=== PATIENT | male | born 1965 | race Two or more races ===

== ENCOUNTER → 2018-05-28 | Outpatient (CLI) | payer BC | END | disposition home or self-care (01) | LOC: LABWHC1 08:32 | PROVIDERS: ATTEND Internal Medicine Cardiovascular Disease | DX: I48.91 Unspecified atrial fibrillation (principal) | CPT/HCPCS: 36415; 83704 ==

== ENCOUNTER 2019-08-23 12:37 | Observation (INO) | payer BC ==
[2019-08-23] MEDS ORDERED: IPRATROPIUM-ALBUTEROL 3 ML NEB INHALATION STA (13:25)
[2019-08-23] MEDS ORDERED: DEXAMETHASONE SOD PHOSPHATE 10 MG/ML 1 ML VIAL IV STA (13:25)
[2019-08-23] MEDS ORDERED: ALBUTEROL NEBULIZED 2.5 MG/3 ML INHALATION STA (13:25)
--- NOTE | 2019-08-23 13:42 | XR ---
EXAMINATION TYPE: XR chest 2V DATE OF EXAM: 08/23/2019 COMPARISON: NONE HISTORY: Chest pain TECHNIQUE: Frontal and lateral views of the chest are obtained. FINDINGS: There is no focal air space opacity. No evidence for pneumothorax. No pleural effusion. The cardiac silhouette size is within normal limits. The osseous structures are grossly intact. IMPRESSION: 1. No acute cardiopulmonary process.
[2019-08-23 13:43] LABS: Basophils # (A) 0.2 k/uL (0-0.2); Basophils % (A) 2 %; Eosinophils # (A) 0.2 k/uL (0-0.7); Eosinophils % (A) 2 %; HGB 15.1 gm/dL (13.0-17.5); Lymphocytes # (A) 3.1 k/uL (1.0-4.8); Lymphocytes % (A) 33 %; MCH 31.6 pg (25.0-35.0); MCHC 34.4 g/dL (31.0-37.0); MCV 91.8 fL (80.0-100.0); Mean Platelet Volume 7.8; Monocytes # (A) 0.6 k/uL (0-1.0); Monocytes % (A) 7 %; Neutrophils # (A) 5.1 k/uL (1.3-7.7); Neutrophils % (A) 55 %; Platelet Count 255 k/uL (150-450); RDW 12.5 % (11.5-15.5); WBC 9.2 k/uL (3.8-10.6)
--- NOTE | 2019-08-23 13:46 | ED ---
General Adult HPI - General Chief complaint: Chest Pain Stated complaint: Chest pain Time Seen by Provider: 08/23/19 13:03 Source: patient, RN notes reviewed, old records reviewed Mode of arrival: ambulatory Limitations: no limitations - History of Present Illness Initial comments: 54-year-old male presenting for evaluation of chest pain and cough. Patient has experienced cough and dyspnea for the past one week. He has history of asthma and recurrent bronchitis. Patient states that he was shoveling snow on Friday which was 3 days prior to evaluation he developed some chest pain. He's had intermittent chest pain which has been primarily nonexertional since that time. He has no known history of coronary artery disease. He has history of atrial fibrillation and is currently on aspirin and flecainide. Denies palpitations. Denies fever. States he's had cough and dyspnea throughout. - Related Data Allergies Allergy/AdvReac Type Severity Reaction Status Date / Time No Known Allergies Allergy Verified 08/23/19 12:54 Review of Systems ROS Statement: Those systems with pertinent positive or pertinent negative responses have been documented in the HPI. ROS Other: All systems not noted in ROS Statement are negative. Past Medical History Past Medical History: No Reported History History of Any Multi-Drug Resistant Organisms: None Reported Past Surgical History: Orthopedic Surgery Past Psychological History: No Psychological Hx Reported Smoking Status: Current every day smoker Past Alcohol Use History: Occasional Past Drug Use History: None Reported General Exam Limitations: no limitations General appearance: alert, in no apparent distress Head exam: Present: atraumatic, normocephalic Eye exam: Present: normal appearance, PERRL ENT exam: Present: normal exam Neck exam: Present: normal inspection. Absent: tenderness, meningismus Respiratory exam: Present: wheezes, rhonchi. Absent: respiratory distress, decreased breath sounds Cardiovascular Exam: Present: regular rate, normal rhythm GI/Abdominal exam: Present: soft. Absent: distended, tenderness, guarding Extremities exam: Present: normal inspection, normal capillary refill. Absent: pedal edema, calf tenderness Neurological exam: Present: alert, oriented X3, CN II-XII intact. Absent: motor sensory deficit Psychiatric exam: Present: normal affect, normal mood Skin exam: Present: warm, dry, intact. Absent: cyanosis, diaphoretic Course Vital Signs 08/23/19 08/23/19 08/23/19 12:49 13:49 13:56 Temperature 98.4 F Pulse Rate 65 65 68 Respiratory 20 Rate Blood Pressure 134/77 O2 Sat by Pulse 100 Oximetry EKG Findings - EKG Comments: EKG Findings:: Sinus bradycardia with frequent PVC, rate of 72, RI interval 170, QRS duration 90, QTC 429, no ST segment elevation Medical Decision Making - Medical Decision Making 54-year-old male history of asthma, atrial fibrillation presenting for evaluation of chest pain and dyspnea. Patient has had productive cough, he has wheezing bilaterally. Chest x-ray negative for focal pneumonia. EKG showing sinus rhythm with no ST segment elevation. He has a normal CBC, normal CMP, negative initial troponin. Some of his chest pain is typical in nature this combined with his persistent dyspnea and cough has propagated me to observe this patient over 24 hours for treatment of asthma exacerbation and rule out CAD. Troponin will be repeated at 6 hours. Cardiology placed on consult. Case is discussed with the admitting physician Dr. Rosen - Lab Data Result diagrams: 08/23/19 13:13 08/23/19 13:13 Lab Results 08/23/19 08/23/19 08/23/19 Range/Units 13:13 13:13 13:13 WBC 9.2 (3.8-10.6) k/uL RBC 4.80 (4.30-5.90) m/uL Hgb 15.1 (13.0-17.5) gm/dL Hct 44.0 (39.0-53.0) % MCV 91.8 (80.0-100.0) fL MCH 31.6 (25.0-35.0) pg MCHC 34.4 (31.0-37.0) g/dL RDW 12.5 (11.5-15.5) % Plt Count 255 (150-450) k/uL Neutrophils % 55 % Lymphocytes % 33 % Monocytes % 7 % Eosinophils % 2 % Basophils % 2 % Neutrophils # 5.1 (1.3-7.7) k/uL Lymphocytes # 3.1 (1.0-4.8) k/uL Monocytes # 0.6 (0-1.0) k/uL Eosinophils # 0.2 (0-0.7) k/uL Basophils # 0.2 (0-0.2) k/uL PT 9.8 (9.0-12.0) sec INR 0.9 (<1.2) APTT 25.1 (22.0-30.0) sec Sodium 139 (137-145) mmol/L Potassium 4.4 (3.5-5.1) mmol/L Chloride 105 (98-107) mmol/L Carbon Dioxide 27 (22-30) mmol/L Anion Gap 7 mmol/L BUN 14 (9-20) mg/dL Creatinine 0.79 (0.66-1.25) mg/dL Est GFR (CKD-EPI)AfAm >90 (>60 ml/min/1.73 sqM) Est GFR (CKD-EPI)NonAf >90 (>60 ml/min/1.73 sqM) Glucose 91 (74-99) mg/dL Calcium 9.6 (8.4-10.2) mg/dL Magnesium 2.3 (1.6-2.3) mg/dL Total Bilirubin 0.5 (0.2-1.3) mg/dL AST 32 (17-59) U/L ALT 40 (4-49) U/L Alkaline Phosphatase 100 (38-126) U/L Troponin I (0.000-0.034) ng/mL Total Protein 7.2 (6.3-8.2) g/dL Albumin 4.4 (3.5-5.0) g/dL 08/23/19 Range/Units 13:13 WBC (3.8-10.6) k/uL RBC (4.30-5.90) m/uL Hgb (13.0-17.5) gm/dL Hct (39.0-53.0) % MCV (80.0-100.0) fL MCH (25.0-35.0) pg MCHC (31.0-37.0) g/dL RDW (11.5-15.5) % Plt Count (150-450) k/uL Neutrophils % % Lymphocytes % % Monocytes % % Eosinophils % % Basophils % % Neutrophils # (1.3-7.7) k/uL Lymphocytes # (1.0-4.8) k/uL Monocytes # (0-1.0) k/uL Eosinophils # (0-0.7) k/uL Basophils # (0-0.2) k/uL PT (9.0-12.0) sec INR (<1.2) APTT (22.0-30.0) sec Sodium (137-145) mmol/L Potassium (3.5-5.1) mmol/L Chloride (98-107) mmol/L Carbon Dioxide (22-30) mmol/L Anion Gap mmol/L BUN (9-20) mg/dL Creatinine (0.66-1.25) mg/dL Est GFR (CKD-EPI)AfAm (>60 ml/min/1.73 sqM) Est GFR (CKD-EPI)NonAf (>60 ml/min/1.73 sqM) Glucose (74-99) mg/dL Calcium (8.4-10.2) mg/dL Magnesium (1.6-2.3) mg/dL Total Bilirubin (0.2-1.3) mg/dL AST (17-59) U/L ALT (4-49) U/L Alkaline Phosphatase (38-126) U/L Troponin I <0.012 (0.000-0.034) ng/mL Total Protein (6.3-8.2) g/dL Albumin (3.5-5.0) g/dL Disposition Clinical Impression: Chest pain, Asthma Disposition: ADMITTED IP TO THIS [facility] Condition: Stable Is patient prescribed a controlled substance at d/c from ED?: No Referrals: Linda Calderon DO [Primary Care Provider] - 1-2 days Decision to Admit Reason: Admit from EC Decision Date: 08/23/19 Decision Time: 14:56
[2019-08-23 13:48] LABS: ALT 40 U/L (4-49); AST 32 U/L (17-59); African American GFR (CKD) >90 (>60 ml/min/1.73 sqM); Albumin 4.4 g/dL (3.5-5.0); Alkaline Phosphatase 100 U/L (38-126); Anion Gap 7 mmol/L; Blood Urea Nitrogen 14 mg/dL (9-20); Calcium 9.6 mg/dL (8.4-10.2); Carbon Dioxide 27 mmol/L (22-30); Chloride 105 mmol/L (98-107); Glucose 91 mg/dL (74-99); Magnesium 2.3 mg/dL (1.6-2.3); Non-African American GFR(CKD) >90 (>60 ml/min/1.73 sqM); Potassium 4.4 mmol/L (3.5-5.1); Sodium 139 mmol/L (137-145); Total Bilirubin 0.5 mg/dL (0.2-1.3); Total Protein 7.2 g/dL (6.3-8.2)
[2019-08-23 13:49] LABS: INR 0.9 (<1.2); Partial Thromboplastin Time 25.1 sec (22.0-30.0); Prothrombin Time 9.8 sec (9.0-12.0)
[2019-08-23] MEDS ORDERED: ASPIRIN 325 MG TAB PO STA (14:51)
[2019-08-23] MEDS ORDERED: IPRATROPIUM-ALBUTEROL 3 ML NEB INHALATION PRN (14:52)
[2019-08-23] MEDS: IPRATROPIUM-ALBUTEROL 3 ML NEB INHALATION SCH ×2 (15:35→19:48)
[2019-08-23 15:42] VITALS: RESP 18
[2019-08-23] MEDS: NICOTINE 21MG/24HR PATCH TRANSDERM SCH (17:52)
[2019-08-23] MEDS ORDERED: methylPREDNISolone SOD SUCCI 125 MG/2 ML VIAL IV SCH (18:00)
[2019-08-23] MEDS: FLECAINIDE 50 MG TAB PO SCH (20:13)
[2019-08-23 20:23] LABS: Glucose,Whole Blood 203 mg/dL (75-99)
[2019-08-23] MEDS: INSULIN ASPART (NovoLOG) 100 UNIT/ML VIAL SQ SCH (20:25)
--- NOTE | 2019-08-23 20:54 | P.HPIM ---
History of Present Illness H&P Date: 08/23/19 Chief Complaint: Chest tightness/pain Patient is a 54-year-old male with a known history of paroxysmal atrial fibrillation currently taking aspirin, asthma, hypertension, hyperlipidemia and ongoing nicotine addiction came to ER with complaints of chest pain and cough. Patient says that he was doing snow shovel on Friday and felt difficulty in breathing and chest tightness. Patient has been having cough and exertional dyspnea for the past 1 week. Patient has been having intermittent chest tightness and pain since then. Chest pain is not getting better which made him to come to ER today. Denied any radiation of the pain. No nausea vomiting or abdominal pain. No dizziness or lightheadedness. Patient does take aspirin and flecainide and metoprolol for paroxysmal atrial fibrillation. Patient says that he was seen by cardiology in June 2019 and had stress test which was negative. Patient follows with Dr. Aguirre as an outpatient. 54-year-old male presenting for evaluation of chest pain and cough. Patient has experienced cough and dyspnea for the past one week. He has history of asthma and recurrent bronchitis. Patient states that he was shoveling snow on Friday which was 3 days prior to evaluation he developed some chest pain. He's had i ntermittent chest pain which has been primarily nonexertional since that time. He has no known history of coronary artery disease. He has history of atrial fibrillation and is currently on aspirin and flecainide. Denies palpitations. Denies fever. States he's had cough and dyspnea throughout. Past Medical History: Atrial Fibrillation, Asthma, Hyperlipidemia, Hypertension Additional Past Medical History / Comment(s): asthmatic bronchitis History of Any Multi-Drug Resistant Organisms: None Reported Past Surgical History: Orthopedic Surgery Additional Past Surgical History / Comment(s): Bilateral knee arthroscopy Past Psychological History: No Psychological Hx Reported Smoking Status: Current every day smoker Past Alcohol Use History: Occasional Past Drug Use History: None Reported Review of Systems Constitutional: Patient denies any fever or chills . No generalized weakness or weight loss. Abdomen: Patient denied nausea vomiting and diarrhea and abdominal pain. Cardiovascular: Patient denies any chest pain or short of breath no pa lpitations. Chest tightness present. Respiratory: patient denied any cough is from production. No shortness of breath Neurologic: Patient denied any numbness or tingling headache. Musculoskeletal: Patient denies any complaints of joint swelling or deformity. Skin: Negative Psychiatric: Negative Endocrine: No heat or cold intolerance. No recent weight gain. Genitourinary: No dysuria or hematuria. All other 14 point ROS negative except the above Past Medical History Past Medical History: Atrial Fibrillation, Asthma, Hyperlipidemia, Hypertension Additional Past Medical History / Comment(s): asthmatic bronchitis History of Any Multi-Drug Resistant Organisms: None Reported Past Surgical History: Orthopedic Surgery Additional Past Surgical History / Comment(s): Bilateral knee arthroscopy Past Psychological History: No Psychological Hx Reported Smoking Status: Current every day smoker Past Alcohol Use History: Occasional Past Drug Use History: None Reported Medications and Allergies Home Medications Medication Instructions Recorded Confirmed Type Amoxic-Pot Clav 875-125Mg 1 tab PO BID 08/23/19 08/23/19 History [Augmentin 875-125] Aspirin 81 mg PO DAILY 08/23/19 08/23/19 History Atorvastatin [Lipitor] 40 mg PO HS 08/23/19 08/23/19 History Flecainide [Tambocor] 50 mg PO BID 08/23/19 08/23/19 History Fluticasone Nasal [place] [Flonase 1 spray EA NOSTRIL DAILY 08/23/19 08/23/19 History Nasal [place]] Loratadine 10 mg PO HS 08/23/19 08/23/19 History Metoprolol Succinate [Toprol XL] 50 mg PO DAILY 08/23/19 08/23/19 History Allergies Allergy/AdvReac Type Severity Reaction Status Date / Time No Known Allergies Allergy Verified 08/23/19 15:44 Physical Exam Vitals: Vital Signs Temp Pulse Pulse Resp BP BP Pulse Ox 08/23/19 15:50 68 08/23/19 15:41 97.7 F 65 18 123/78 98 08/23/19 15:35 65 08/23/19 15:00 67 126/78 98 08/23/19 14:30 63 113/77 96 08/23/19 14:00 62 116/63 98 08/23/19 13:56 68 08/23/19 13:49 65 08/23/19 13:30 61 143/82 98 08/23/19 12:49 98.4 F 65 20 134/77 100 Intake and Output 08/23/19 08/23/19 08/23/19 06:59 14:59 22:59 Other: Weight 91.626 kg 91.626 kg PHYSICAL EXAMINATION: Patient is lying in the bed comfortably, no acute distress, awake alert and oriented.. HEENT: Normocephalic. Neck is supple. Pupils reactive. Nostrils clear. Oral cavity is moist. Ears reveal no drainage. Neck reveals no JVD, carotid bruits, or thyromegaly. CHEST EXAMINATION: Trachea is central. Symmetrical expansion. Mild expiratory wheeze. Lung gabriel clear to auscultation and percussion. CARDIAC: Normal S1, S2 with no gallops. No murmurs ABDOMEN: Soft. Bowel sounds normal. No organomegaly. No abdominal bruits. Extremities: reveal no edema. No clubbing or cyanosis Neurologically awake, alert, oriented x3 with well-coordinated movements. No focal deficits noted Skin: No rash or skin lesions. Psychiatric: Coperative. Nonsuicidal Musculoskeletal: No joint swelling or deformity. Normal range of motion. Results CBC & Chem 7: 08/23/19 13:13 08/23/19 13:13 Thrombosis Risk Factor Assmnt - DVT/VTE Prophylaxis DVT/VTE Prophylaxis: Pharmacologic Prophylaxis ordered - Choose All That Apply Any of the Below Risk Factors Present?: Yes Each Factor Represents 1 point: Age 41-60 years Other Risk Factors: No Thrombosis Risk Factor Assessment Total Risk Factor Score: 1 Thrombosis Risk Factor Assessment Level: Low Risk Assessment and Plan Assessment: Atypical chest pain/tightness likely to asthma. Rule out ACS Acute asthma exacerbation. Ongoing nicotine addiction Sinus bradycardia with frequent PVCs. Metoprolol 50 mg XL is on hold. Paroxysmal atrial fibrillation. Currently on aspirin, metoprolol and flecainide at home. Hypertension Hyperlipidemia DVT prophylaxis with heparin subcu Plan: Patient be continued on telemetry monitoring. Serial EKGs and troponins. Metoprolol is on hold due to sinus bradycardia. Cardiology was consulted. Patient will be continued on DuoNeb's and IV steroids and follow closely. Continue with home medications and further recommendations based on the clinical course. Smoking cessation has been counseled extensively. Time with Patient: Greater than 30
[2019-08-23] MEDS ORDERED: ATORVASTATIN 40 MG TAB PO SCH (21:00)
[2019-08-23] MEDS: methylPREDNISolone SOD SUCCI 40 MG/ML 1 ML VIAL IV SCH (22:51)
[2019-08-23] MEDS: HEPARIN SODIUM,PORCINE 5,000 UNIT/ML 1 ML VIAL SQ SCH (22:51)
[2019-08-24 07:31] LABS: Glucose,Whole Blood 150 mg/dL (75-99)
[2019-08-24] MEDS: IPRATROPIUM-ALBUTEROL 3 ML NEB INHALATION SCH ×2 (07:56→11:27)
[2019-08-24 08:08] VITALS: PULSE 95
[2019-08-24] MEDS ORDERED: ASPIRIN 81 MG PO SCH (09:00)
[2019-08-24] MEDS ORDERED: METOPROLOL SUCCINATE (ER) 50 MG TAB.ER.24H PO SCH (09:00)
[2019-08-24] MEDS: INSULIN ASPART (NovoLOG) 100 UNIT/ML VIAL SQ SCH ×2 (10:32→12:51)
[2019-08-24] MEDS: FLECAINIDE 50 MG TAB PO SCH (10:41)
[2019-08-24] MEDS: HEPARIN SODIUM,PORCINE 5,000 UNIT/ML 1 ML VIAL SQ SCH (10:42)
[2019-08-24] MEDS: methylPREDNISolone SOD SUCCI 40 MG/ML 1 ML VIAL IV SCH (10:43)
--- NOTE | 2019-08-24 11:08 | P.CRDCN ---
History of Present Illness History of present illness: HISTORY OF PRESENTING ILLNESS This is a pleasant 54-year-old male past medical history significant for paroxysmal atrial fibrillation, chronic bronchitis, chronic nicotine dependence and dyslipidemia. He follows in the office with Dr. Kaminski. We have been asked to see in consultation for chest pain. He states he has been experiencing cough and upper respiratory illness for just over a week. Initially it started as facial pain and congestion. He went to urgent care and was started on antibiotics and steroids. The facial pain and congestion did start to improve however he was still coughing. Friday he was outside shoveling snow for 2-3 hours. After coming in the house he started feeling a tightness in his chest associated with shortness of breath. He was also arguing with his at that time. The discomfort lasted around 30 minutes. He went upstairs to lay down and the pain subsided. He had another episode later in the evening again while arguing with his . He denies radiation to the arm, back, neck or jaw. He denies associated palpitations, nausea, vomiting or diaphoresis. DIAGNOSTICS EKG reveals sinus mechanism with abberantly conducted PAC's. Chest xray negative for an acute process. Laboratory reviewed, CBC unremarkable, sodium 139, potassium 4.4, creatinine 0.79, cardiac enzymes negative x3. Current cardiac medications include flecanide 50 mg BID, aspirin 81 mg daily, atorvastatin 40 mg daily and toprol mg daily. REVIEW OF SYSTEMS At the time of my exam: CONSTITUTIONAL: Denies fever or chills. CARDIOVASCULAR: Denies chest pain, shortness of breath, orthopnea, PND or palpitations. RESPIRATORY: Denies cough. GASTROINTESTINAL: Denies abdominal pain, diarrhea, constipation, nausea or vomiting. MUSCULOSKELETAL: Denies myalgias. NEUROLOGIC: Denies numbness, tingling or weakness. ENDOCRINE: Denies fatigue, weight change, polydipsia or polyurina. GENITOURINARY: Denies burning, hematuria or urgency with micturation. HEMATOLOGIC: Denies history of anemia or bleeding. PHYSICAL EXAMINATION Blood pressure 105/62 heart rate 95 afebrile and maintaining oxygen saturation on room air. CONSTITUTIONAL: No apparent distress. HEENT: Head is normocephalic. Pupils are equal, round. Sclerae anicteric. Mucous membranes of the mouth are moist. No JVD. No carotid bruit. CHEST EXAMINATION: Lungs are clear to auscultation. No chest wall tenderness is noted on palpation or with deep breathing. HEART EXAMINATION: Regular rate and rhythm. S1, S2 heard. No murmurs, gallops or rub. ABDOMEN: Soft, nontender. Positive bowel sounds. EXTREMITIES: 2+ peripheral pulses, no lower extremity edema and no calf tenderness. NEUROLOGIC EXAMINATION: Patient is awake, alert and oriented x3. ASSESSMENT Precordial chest pain Paroxysmal atrial fibrillation, maintaining sinus mechanism. CHADS-VASC score of 1, no medical terminologist anti-coagulation required at this time. Dyslipidemia Hypertension Chronic nicotine dependence PLAN An acute coronary event has been ruled out. Obtain 2D echocardiogram and doppler study to assess cardiac structure and function. Perform exercise cardiolyte stress test to assess for reversible cardiac ischemia. If stress test is normal he is stable for discharge from a cardiac perspective. Smoking cessation recommended. Thank you kindly for this consultation. Nurse Practitioner note has been reviewed, I agree with a documented findings and plan of care. Patient was seen and examined. Past Medical History Past Medical History: Atrial Fibrillation, Asthma, Hyperlipidemia, Hypertension Additional Past Medical History / Comment(s): asthmatic bronchitis History of Any Multi-Drug Resistant Organisms: None Reported Past Surgical History: Orthopedic Surgery Additional Past Surgical History / Comment(s): Bilateral knee arthroscopy Past Psychological History: No Psychological Hx Reported Smoking Status: Current every day smoker Past Alcohol Use History: Occasional Past Drug Use History: None Reported Medications and Allergies Home Medications Medication Instructions Recorded Confirmed Type Amoxic-Pot Clav 875-125Mg 1 tab PO BID 08/23/19 08/23/19 History [Augmentin 875-125] Aspirin 81 mg PO DAILY 08/23/19 08/23/19 History Atorvastatin [Lipitor] 40 mg PO HS 08/23/19 08/23/19 History Flecainide [Tambocor] 50 mg PO BID 08/23/19 08/23/19 History Fluticasone Nasal [place] [Flonase 1 spray EA NOSTRIL DAILY 08/23/19 08/23/19 History Nasal [place]] Loratadine 10 mg PO HS 08/23/19 08/23/19 History Metoprolol Succinate [Toprol XL] 50 mg PO DAILY 08/23/19 08/23/19 History Allergies Allergy/AdvReac Type Severity Reaction Status Date / Time No Known Allergies Allergy Verified 08/23/19 15:44 Physical Exam Vitals: Vital Signs Temp Pulse Pulse Resp BP BP BP 08/24/19 08:07 95 08/24/19 08:00 95 18 08/24/19 07:59 92 08/24/19 07:36 98.2 F 95 18 105/62 08/24/19 04:25 97.8 F 67 18 119/72 08/24/19 04:00 68 18 08/23/19 23:47 68 18 08/23/19 23:25 97.8 F 68 18 111/67 08/23/19 20:01 66 08/23/19 20:00 72 18 08/23/19 19:48 64 08/23/19 19:16 97.9 F 72 18 143/77 08/23/19 15:50 68 08/23/19 15:41 97.7 F 65 18 123/78 08/23/19 15:35 65 08/23/19 15:00 67 126/78 08/23/19 14:30 63 113/77 08/23/19 14:00 62 116/63 08/23/19 13:56 68 08/23/19 13:49 65 08/23/19 13:30 61 143/82 08/23/19 12:49 98.4 F 65 20 134/77 Pulse Ox 08/24/19 08:07 08/24/19 08:00 08/24/19 07:59 08/24/19 07:36 95 08/24/19 04:25 94 L 08/24/19 04:00 08/23/19 23:47 08/23/19 23:25 94 L 08/23/19 20:01 08/23/19 20:00 08/23/19 19:48 08/23/19 19:16 95 08/23/19 15:50 08/23/19 15:41 98 08/23/19 15:35 08/23/19 15:00 98 08/23/19 14:30 96 08/23/19 14:00 98 08/23/19 13:56 08/23/19 13:49 08/23/19 13:30 98 08/23/19 12:49 100 Intake and Output 08/23/19 08/24/19 08/24/19 22:59 06:59 14:59 Other: Voiding Method Toilet # Voids 1 1 1 Weight 91.626 kg Results 08/23/19 13:13 08/23/19 13:13 Cardiac Enzymes 08/23/19 08/23/19 08/23/19 Range/Units 13:13 13:13 20:57 AST 32 (17-59) U/L Troponin I <0.012 <0.012 (0.000-0.034) ng/mL 08/24/19 Range/Units 01:23 AST (17-59) U/L Troponin I <0.012 (0.000-0.034) ng/mL Coagulation 08/23/19 Range/Units 13:13 PT 9.8 (9.0-12.0) sec APTT 25.1 (22.0-30.0) sec CBC 08/23/19 Range/Units 13:13 WBC 9.2 (3.8-10.6) k/uL RBC 4.80 (4.30-5.90) m/uL Hgb 15.1 (13.0-17.5) gm/dL Hct 44.0 (39.0-53.0) % Plt Count 255 (150-450) k/uL Comprehensive Metabolic Panel 08/23/19 Range/Units 13:13 Sodium 139 (137-145) mmol/L Potassium 4.4 (3.5-5.1) mmol/L Chloride 105 (98-107) mmol/L Carbon Dioxide 27 (22-30) mmol/L BUN 14 (9-20) mg/dL Creatinine 0.79 (0.66-1.25) mg/dL Glucose 91 (74-99) mg/dL Calcium 9.6 (8.4-10.2) mg/dL AST 32 (17-59) U/L ALT 40 (4-49) U/L Alkaline Phosphatase 100 (38-126) U/L Total Protein 7.2 (6.3-8.2) g/dL Albumin 4.4 (3.5-5.0) g/dL Current Medications Generic Name Dose Route Start Last Admin Trade Name Freq PRN Reason Stop Dose Admin Albuterol/Ipratropium 3 ml 08/23/19 14:52 Duoneb 0.5 Mg-3 Mg/3 Ml Soln INHALATION RT-Q4H PRN Shortness Of Breath Or Wheezing Albuterol/Ipratropium 3 ml 08/23/19 16:00 08/24/19 07:56 Duoneb 0.5 Mg-3 Mg/3 Ml Soln INHALATION 3 ml RT-QID LATISHA Administration Aspirin 81 mg 08/24/19 09:00 08/24/19 10:41 Aspirin PO 81 mg DAILY [facility] Administration Atorvastatin Calcium 40 mg 08/23/19 21:00 08/23/19 20:13 Lipitor PO 40 mg HS [facility] Administration Flecainide Acetate 50 mg 08/23/19 21:00 08/24/19 10:41 Tambocor PO 50 mg BID [facility] Administration Heparin Sodium (Porcine) 5,000 unit 08/24/19 00:00 08/24/19 10:42 Heparin SQ Not Given Q8HR [facility] Insulin Aspart 0 unit 08/23/19 21:00 08/24/19 10:32 Novolog SQ Not Given ACHS [facility] Protocol Methylprednisolone Sodium Succinate 40 mg 08/24/19 00:00 08/24/19 10:43 Solu-Medrol IV Not Given Q8HR [facility] Nicotine 1 patch 08/23/19 17:45 08/23/19 17:52 Habitrol 21mg/24hr Patch TRANSDERM 1 patch DAILY [facility] Administration Intake and Output 08/23/19 08/24/19 08/24/19 22:59 06:59 14:59 Other: Voiding Method Toilet # Voids 1 1 1 Weight 91.626 kg 08/23/19 13:13 08/23/19 13:13
[2019-08-24 12:43] LABS: Glucose,Whole Blood 137 mg/dL (75-99)
--- NOTE | 2019-08-24 12:53 | NM ---
EXAMINATION TYPE: NM stress cardiolite complete DATE OF EXAM: 08/24/2019 COMPARISON: NONE HISTORY: Pain TECHNIQUE: After the intravenous administration of 10.4 mCi Tc 99m Sestamibi - Rest images obtained 55 minutes post injection. The patient exercised using a FELICITA protocol and 1 minute prior to peak exercise was injected with 26.5 mCi Tc 99m Sestamibi - Stress images obtained 15 minutes post injecti on. FINDINGS: Targeted heart rate was achieved during performance of the study. Review of stress and rest SPECT alize ges demonstrates no distinct perfusion abnormality. Gated analysis shows normal wall motion with an estimated left ventricular ejection fraction of 60 %. IMPRESSION: No scintigraphic evidence for reversible ischemia
[2019-08-24 12:55] LABS: Hemoglobin A1C 6.1 % (4.0-6.0)
[2019-08-24 13:12] VITALS: BP 104/72; TEMP 97.7
--- NOTE | 2019-08-24 13:23 | EST ---
EXERCISE STRESS DATE OF SERVICE: 08/24/2019 AGE: 54 SEX: Male HT: 5'10" WT: 202 pounds PROTOCOL: Cardiolite Treadmill STAGE: IV DURATION OF EXERCISE: 10 minutes HEART RATE REST: 86 BLOOD PRESSURE REST: 109/72 MAXIMUM HEART RATE ACHIEVED: 146 MAXIMUM BLOOD PRESSURE: 142/65 85% MPHR: 143 100% MPHR: 168 METS: 10.7 INDICATIONS: Chest pain. CLINICAL INFORMATION: A stress Cardiolite study was performed. The patient was exercised for a total period of 10 minutes. The peak heart rate of 146 was achieved. Maximum blood pressure of 142/65 mmHg was noted. Resting EKG shows normal sinus rhythm with normal KS interval and QRS duration and normal ST-T waves. No ST-segment depression suggestive of ischemia is noted. The patient did not complain of any chest pain during the test. FINAL IMPRESSION: 1. This exercise test is not suggestive of ischemia. 2. Patient's exercise tolerance is normal. 3. The results of the nuclear study will follow. MMNIK / TERRAN: [id number] /
[2019-08-24] MEDS: NICOTINE 21MG/24HR PATCH TRANSDERM SCH (14:23)
--- NOTE | 2019-09-07 22:12 | P.DS ---
Providers Date of admission: 08/23/19 14:52 Expected date of discharge: 08/24/19 Attending physician: Luis M Sifuentes Consults: 08/23/19 14:52 Consult Physician Routine Consulting Provider: Дмитрий Aleman Consult Reason/Comments: MELVA JIMENEZ Do you want consulting provider notified?: Yes Primary care physician: Linda Caledron [facility] Course: Discharge diagnosis Atypical chest pain/tightness likely to asthma. Ruled out ACS Acute asthma exacerbation. Ongoing nicotine addiction Sinus bradycardia with frequent PVCs. Metoprolol 50 mg XL is on hold. Paroxysmal atrial fibrillation. Currently on aspirin, metoprolol and flecainide at home. Hypertension Hyperlipidemia DVT prophylaxis with heparin subcu Hospital course. Patient is a 54-year-old male with a known history of paroxysmal atrial fibrillation currently taking aspirin, asthma, hypertension, hyperlipidemia and ongoing nicotine addiction came to ER with complaints of chest pain and cough. Patient says that he was doing snow shovel on Friday and felt difficulty in breathing and chest tightness. Patient has been having cough and exertional dyspnea for the past 1 week. Patient has been having intermittent chest tightne ss and pain since then. Chest pain is not getting better which made him to come to ER today. Denied any radiation of the pain. No nausea vomiting or abdominal pain. No dizziness or lightheadedness. Patient does take aspirin and flecainide and metoprolol for paroxysmal atrial fibrillation. Patient says that he was seen by cardiology in June 2019 and had stress test which was negative. Patient follows with Dr. Aguirre as an outpatient. Patient was continued on telemetry monitoring. Serial EKGs and troponins negative. Metoprolol is on hold due to sinus bradycardia. restarted again as per cardiology recomendations. Cardiology was consulted. Patient was continued on DuoNeb's and IV steroids and follow closely. Continue with home medications and further recommendations based on the clinical course. Smoking cessation has been counseled extensively. Pt. underwenrt stress test which is negative. PHYSICAL EXAMINATION: Patient is lying in the bed comfortably, no acute distress, awake alert and oriented.. HEENT: Normocephalic. Neck is supple. Pupils reactive. Nostrils clear. Oral cavity is moist. Ears reveal no drainage. Neck reveals no JVD, carotid bruits, or thyromegaly. CHEST EXAMINATION: Trachea is central. Symmetrical expansion. no wheeze. Lung gabriel clear to auscultation and percussion. CARDIAC: Normal S1, S2 with no gallops. No murmurs ABDOMEN: Soft. Bowel sounds normal. No organomegaly. No abdominal bruits. Extremities: reveal no edema. No clubbing or cyanosis Neurologically awake, alert, oriented x3 with well-coordinated movements. No focal deficits noted Skin: No rash or skin lesions. Psychiatric: Coperative. Nonsuicidal Musculoskeletal: No joint swelling or deformity. Normal range of motion. Vital Signs Temp Pulse Pulse Resp BP BP BP 08/24/19 08:07 95 08/24/19 08:00 95 18 08/24/19 07:59 92 08/24/19 07:36 98.2 F 95 18 105/62 08/24/19 04:25 97.8 F 67 18 119/72 08/24/19 04:00 68 18 08/23/19 23:47 68 18 08/23/19 23:25 97.8 F 68 18 111/67 08/23/19 20:01 66 08/23/19 20:00 72 18 08/23/19 19:48 64 08/23/19 19:16 97.9 F 72 18 143/77 08/23/19 15:50 68 08/23/19 15:41 97.7 F 65 18 123/78 08/23/19 15:35 65 08/23/19 15:00 67 126/78 08/23/19 14:30 63 113/77 08/23/19 14:00 62 116/63 08/23/19 13:56 68 08/23/19 13:49 65 08/23/19 13:30 61 143/82 08/23/19 12:49 98.4 F 65 20 134/77 Patient Condition at Discharge: Stable Plan - Discharge Summary Discharge Rx Participant: No New Discharge Prescriptions: New predniSONE [Deltasone] 40 mg PO DAILY 3 Days #6 tab Continue Metoprolol Succinate [Toprol XL] 50 mg PO DAILY Loratadine 10 mg PO HS Fluticasone Nasal [place] [Flonase Nasal [place]] 1 spray EA NOSTRIL DAILY Flecainide [Tambocor] 50 mg PO BID Atorvastatin [Lipitor] 40 mg PO HS Amoxic-Pot Clav 875-125Mg [Augmentin 875-125] 1 tab PO BID Aspirin 81 mg PO DAILY Discharge Medication List Amoxic-Pot Clav 875-125Mg [Augmentin 875-125] 1 tab PO BID 08/23/19 [History] Aspirin 81 mg PO DAILY 08/23/19 [History] Atorvastatin [Lipitor] 40 mg PO HS 08/23/19 [History] Flecainide [Tambocor] 50 mg PO BID 08/23/19 [History] Fluticasone Nasal [place] [Flonase Nasal [place]] 1 spray EA NOSTRIL DAILY 08/23/19 [History] Loratadine 10 mg PO HS 08/23/19 [History] Metoprolol Succinate [Toprol XL] 50 mg PO DAILY 08/23/19 [History] predniSONE [Deltasone] 40 mg PO DAILY 3 Days #6 tab 08/24/19 [Rx] Follow up Appointment(s)/Referral(s): Linda Calderon DO [Primary Care Provider] - 1-2 days Kiki Kaminski MD [STAFF PHYSICIAN] - 2 Weeks (office will call patient to make appointment ) Discharge Disposition: HOME SELF-CARE
== END 2019-08-24 14:24 | disposition home or self-care (01) ==
LOC: EC 12:37 → 1SOBS 14:52
PROVIDERS: ADMIT Hospitalist; ATTEND Hospitalist
DX: R07.89 Other chest pain (principal); J45.901 Unspecified asthma with (acute) exacerbation; I48.0 Paroxysmal atrial fibrillation; F17.200 Nicotine dependence, unspecified, uncomplicated; R00.1 Bradycardia, unspecified; I49.3 Ventricular premature depolarization; I10 Essential (primary) hypertension; E78.5 Hyperlipidemia, unspecified; J42 Unspecified chronic bronchitis; Z79.82 Long term (current) use of aspirin; Z79.899 Other long term (current) drug therapy
CPT/HCPCS: 93005 ×2; 96372; 96375; 96374; 99285; 36415; 94640 ×3; 93017; 80053; 83735; 84484 ×2; 85025; 85610; 85730; 83036; 71046; 78452; G0378 ×2; A9500; S4990; J1644; J1100; J2920